=== PATIENT | male | born 1985 | race African-American/Black ===

== ENCOUNTER → 2017-03-13 | Outpatient (CLI) | payer BC ==
[~2017-03-13] VITALS: Ht 160 cm; Wt 100.7 kg
[~2017-03-13] MED LIST: ALEVE220 MG PO; CEFDINIR300 MG PO; DOXYCYCLINE 10100 MG PO; FLEXERIL PO; HYDROCODONE-APA1 TA1 PO; LUNESTA3 MG PO; MOBIC7.5 MG PO; ONDANSETRON ODT4 MG SUBLING; PREDNISONE 20 M20 MG PO; REQUIP 1 MG TABL1 M1 PO
--- NOTE | ~2017-03-13 | CATHLAB ---
[facility] [address] [place] [address] INVASIVE PROCEDURE REPORT Name: ADDIE POLK Room #: REG SOFIA Rubio#: [id number] Admission: 03/13/17 Attend Phys: William Santiago Discharge: Date of : 85 Date of Service: 03/13/17 1323 Report #: [id number] THIS REPORT FOR: //name// APPROVED REPORT Patient Details Patient Status: Out-Patient Room #: The patient is a 31 year-old male Event Personnel William Pruett Customer Engagement Representative, Shelton Guy RN, Jazlyn Funez [place], Nancy Monitor, Praful To Monitor Procedures Performed Left Heart Cath w/or w/o Coronaries [id number] [facility] supervision of conscious sedation Indication Positive stress test, Chest pain Procedure Narrative The Right Groin^ was infiltrated with 1% Lidocaine subcutaneous anesthesia. A PINNACLE 4FR Sheath #[id number] sheath was inserted into the RFA^. Coronary angiography was performed using coronary diagnostic catheters. The right coronary system was accessed and visualized with a JR4 catheter. The left coronary system was accessed and visualized with a JL4 catheter. The left ventricle was accessed and visualized with a PIGTAIL catheter. Left ventricular/Aortic Valve gradient assessed via catheter pullback. Hemostasis was obtained with manual pressure following sheath removal without any complications. The patient tolerated the procedure well and there were no complications associated with the procedure. There was no hematoma. Intraoperative Conscious Sedation Sedation start time: 1017 Case end Time: 1026 Versed 2 mg Fluoro Time: 1.42 minutes Dose: 365 mGy Contrast Type and Amount: Omnipaque 45 ml Coronary Angiography [address] [address] INVASIVE PROCEDURE REPORT Name: ADDIE POLK Room #: REG [facility] [id number] Admission: 03/13/17 Attend Phys: William Santiago Discharge: Date of : 85 Date of Service: 03/13/17 1323 Report #: [id number] The patient's coronary anatomy is right dominant. Diagnostic Cath Left Main Normal origin and caliber long in length bifurcates into the left anterior descending left circumflex free of high-grade disease LAD Moderate caliber type III vessel courses anteriorly in the interventricular sulcus giving rise to septal and diagonal branches all of which are free of high-grade disease Diagonal 1 Small-caliber free of high-grade disease Circumflex Small-caliber vessel low normal origin has a early first marginal branch which is bifurcating and free of high-grade disease circumflex then continues on giving rise to a second lateral wall marginal branch free of high-grade disease and terminates as small-caliber vessel prior to reaching the crux of the heart OM1 Small to moderate caliber free of high-grade disease OM2 Small to moderate caliber free of high-grade disease Right Coronary Large-caliber vessel of normal origin and courses posteriorly in the AV groove giving rise to a small RV marginal branch. It then gives rise to a small posterior descending artery posterior wall branches posterior left ventricular branch. 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 Hemodynamics The aortic pressure is 123/83 mmHg with a mean of 100 mmHg. The left ventricular pressure is 136/8 mmHg with a mean of mmHg. The left ventricular end diastolic pressure is 19 mmHg. Conclusion 1. Normal coronary arteries 2. Evidence of right coronary artery AVM 3. Normal hemodynamics [facility] [address] [place] [address] INVASIVE PROCEDURE REPORT Name: ADDIE POLK [facility] Room #: REG [facility] [id number] Admission: 03/13/17 Attend Phys: William Santiago Discharge: Date of : 85 Date of Service: 03/13/171322 Report #: [id number] Recommendations Cardiac Risk Reduction Program <ELECTRONICALLY SIGNED> By: William Pruett MD 03/13/17 132 22 22 William Pruett MD /INF
[2017-03-13 07:20] VITALS: BP 143/85
== END | disposition home or self-care (01) ==
LOC: CATH 06:46
DX: Q24.5 Malformation of coronary vessels (principal); I10 Essential (primary) hypertension; G47.33 Obstructive sleep apnea (adult) (pediatric); Z87.891 Personal history of nicotine dependence; Z79.899 Other long term (current) drug therapy

== ENCOUNTER 2017-12-15 18:59 | Emergency (ER) | payer BC ==
[~2017-12-15] VITALS: Ht 160 cm; Wt 103.0 kg
[~2017-12-15 18:59] MED LIST changes: -ALEVE220 MG PO; -DOXYCYCLINE 10100 MG PO; -LUNESTA3 MG PO; -MOBIC7.5 MG PO; -PREDNISONE 20 M20 MG PO
[2017-12-15] MEDS ORDERED: ALEVE220 MG PO (19:27)
[2017-12-15] MEDS ORDERED: FLEXERIL PO (19:27)
[2017-12-15] MEDS ORDERED: PREDNISONE 20 M20 MG PO (19:44)
[2017-12-15] MEDS ORDERED: LUNESTA3 MG PO (19:47)
== END 2017-12-15 19:51 | disposition home or self-care (01) ==
LOC: ER 18:59
DX: M54.5 Low back pain (principal); I10 Essential (primary) hypertension; G47.30 Sleep apnea, unspecified; Z88.1 Allergy status to other antibiotic agents

== ENCOUNTER 2017-12-28 17:27 | Emergency (ER) | payer BC ==
[~2017-12-28] VITALS: Ht 160 cm; Wt 105.7 kg
[~2017-12-28 17:27] MED LIST changes: +ALEVE220 MG PO; +LUNESTA3 MG PO; +PREDNISONE 20 M20 MG PO
[2017-12-28 18:00] LABS: URINE BILIRUBIN NEGATIVE (Negative); URINE BLOOD TRACE (Negative); URINE CLARITY CLEAR; URINE COLOR YELLOW; URINE GLUCOSE-RANDOM* NEGATIVE (Negative); URINE KETONES NEGATIVE (Negative); URINE LEUKOCYTES-REFLEX NEGATIVE (Negative); URINE NITRITE-REFLEX NEGATIVE (Negative); URINE PROTEIN (DIPSTICK) NEGATIVE (Negative); URINE SPECIFIC GRAVITY >= 1.030 (1.005-1.035); URINE UROBILINOGEN 0.2 E.U./dl (0.2-1.0)
[2017-12-28 19:06] LABS: ABSOLUTE NEUTROPHILS 6.8 thou/uL (1.4-8.2); BASOPHILS 0.7 % (0.0-2.0); EOSINOPHILS 4.3 % (0.0-3.0); HEMATOCRIT 44.3 % (42.0-52.0); HEMOGLOBIN 15.1 gm/dL (14.0-18.0); LYMPHOCYTES 26.1 % (24.0-44.0); MCH 30.1 pg (26.0-34.0); MCHC 34.1 g/dL (28.0-37.0); MCV 88.4 fL (80.0-100.0); MONOCYTES 5.6 % (1.0-8.0); PLATELET COUNT 191 thou/uL (150-400); POLYS 63.3 % (36.0-66.0); RBC 5.01 mil/uL (4.50-6.00); RDW 12.6 % (10.5-14.5); WBC 10.7 thou/uL (4.0-11.0)
[2017-12-28 19:13] LABS: CALCIUM 9.9 mg/dL (8.5-10.1); POTASSIUM 3.8 mmol/L (3.5-5.1)
[2017-12-28 19:19] LABS: ALBUMIN 3.8 g/dL (3.4-5.0); TOTAL BILIRUBIN 0.6 mg/dL (<0.1-1.0); TOTAL PROTEIN 7.7 g/dL (6.4-8.2)
[2017-12-28] MEDS ORDERED: DOXYCYCLINE 10100 MG PO (19:23)
[2017-12-28] MEDS ORDERED: MOBIC7.5 MG PO (19:23)
== END 2017-12-28 19:52 | disposition home or self-care (01) ==
LOC: ER 17:27
PROVIDERS: Nurse Practitioner Family
DX: N50.3 Cyst of epididymis (principal); I10 Essential (primary) hypertension; Z87.891 Personal history of nicotine dependence; Z88.1 Allergy status to other antibiotic agents

== ENCOUNTER 2018-04-09 14:46 | Emergency (ER) | payer BC ==
[~2018-04-09] VITALS: Ht 157.5 cm; Wt 104.8 kg
[~2018-04-09 14:46] MED LIST changes: +DOXYCYCLINE 10100 MG PO; +MOBIC7.5 MG PO
[2018-04-09] MEDS ORDERED: PROTONIX40 M1 PO (14:52)
[2018-04-09 15:12] LABS: URINE CLARITY CLEAR; URINE COLOR YELLOW; URINE SPECIFIC GRAVITY 1.025 (1.005-1.035)
[2018-04-09 15:13] LABS: URINE BILIRUBIN NEGATIVE (Negative); URINE BLOOD NEGATIVE (Negative); URINE GLUCOSE-RANDOM* NEGATIVE (Negative); URINE KETONES NEGATIVE (Negative); URINE LEUKOCYTES-REFLEX NEGATIVE (Negative); URINE NITRITE-REFLEX NEGATIVE (Negative); URINE PROTEIN (DIPSTICK) NEGATIVE (Negative); URINE UROBILINOGEN 0.2 E.U./dl (0.2-1.0)
[2018-04-09 15:24] LABS: ABSOLUTE NEUTROPHILS 6.1 thou/uL (1.4-8.2); BASOPHILS 0.2 % (0.0-2.0); HEMATOCRIT 42.9 % (42.0-52.0); LYMPHOCYTES 12.2 % (24.0-44.0); MCH 29.8 pg (26.0-34.0); MCV 85.1 fL (80.0-100.0); MONOCYTES 6.1 % (1.0-8.0); PLATELET COUNT 213 thou/uL (150-400); POLYS 80.5 % (36.0-66.0); RBC 5.04 mil/uL (4.50-6.00); RDW 12.1 % (10.5-14.5); WBC 7.6 thou/uL (4.0-11.0)
[2018-04-09 15:32] LABS: CALCIUM 8.6 mg/dL (8.5-10.1); CREATININE 1.2 mg/dL (0.7-1.3); POTASSIUM 3.3 mmol/L (3.5-5.1)
[2018-04-09 15:39] LABS: ALBUMIN 3.9 g/dL (3.4-5.0); TOTAL BILIRUBIN 0.7 mg/dL (<0.1-1.0); TOTAL PROTEIN 8.1 g/dL (6.4-8.2)
[2018-04-09] MEDS ORDERED: BENTYL 20 MG TA20 M1 PO (17:33)
[2018-04-09] MEDS ORDERED: PHENERGAN 25 MG25 M1 PO (17:33)
[2018-04-09] MEDS ORDERED: PEPCID20 MG PO (17:33)
[2018-04-09] MEDS ORDERED: NORFLEX100 MG PO (17:38)
[2018-04-09 17:48] VITALS: BP 142/86
--- NOTE | 2018-04-10 13:38 | EKG ---
[address] [place] [address] ELECTROCARDIOGRAM REPORT Name: JOHN POLKTON JULIA Room #: DEP Joanne#: [id number] Admission: 04/09/18 Attend Phys: Discharge: 04/09/18 Date of : 85 Report #: [id number] THIS REPORT FOR: //name// [facility] ED Test Date: 2018-04-09 Test Time: 15:35:06 Pat Name: ADDIE POLK Department: Room: Gender: Medical Assistant Supervisor: : 1985 Requested By: Tangela Vieira Order Number: [id number] MD: Dustin Painting Measurements Intervals [place] Rate: 83 P: 73 [place]: 163 QRS: 4 QRSD: 88 T: 4 QT: 404 QTc: 475 Interpretive Statements Sinus rhythm LVH by voltage No previous ECG available for comparison Electronically Signed On 04-10-2018 13:38:03 [employer] by Dustin Painting [email or web address] <ELECTRONICALLY SIGNED> By: Dustin Painting MD 04/10/18 1338 1535 1535 Dustin Painting MD /YELENA
== END 2018-04-09 17:49 | disposition home or self-care (01) ==
LOC: ER 14:46
PROVIDERS: Physician Assistant
DX: R10.13 Epigastric pain (principal); M54.5 Low back pain; I10 Essential (primary) hypertension; Z87.19 Personal history of other diseases of the digestive system; Z88.1 Allergy status to other antibiotic agents; G47.30 Sleep apnea, unspecified; Z87.891 Personal history of nicotine dependence; Z98.52 Vasectomy status

== ENCOUNTER 2018-06-16 16:45 | Emergency (ER) | payer BC ==
[~2018-06-16] VITALS: Ht 157.5 cm; Wt 102.5 kg
[~2018-06-16 16:45] MED LIST changes: +BENTYL 20 MG TA20 M1 PO; +NORFLEX100 MG PO; +PEPCID20 MG PO; +PHENERGAN 25 MG25 M1 PO; +PROTONIX40 M1 PO
[2018-06-16 17:06] LABS: ABSOLUTE NEUTROPHILS 5.1 thou/uL (1.4-8.2); BASOPHILS 0.6 % (0.0-2.0); EOSINOPHILS 6.9 % (0.0-3.0); HEMATOCRIT 42.8 % (42.0-52.0); HEMOGLOBIN 14.6 gm/dL (14.0-18.0); LYMPHOCYTES 28.1 % (24.0-44.0); MCH 29.5 pg (26.0-34.0); MCHC 34.1 g/dL (28.0-37.0); MCV 86.4 fL (80.0-100.0); MONOCYTES 5.3 % (1.0-8.0); PLATELET COUNT 266 thou/uL (150-400); POLYS 59.1 % (36.0-66.0); RBC 4.95 mil/uL (4.50-6.00); RDW 12.3 % (10.5-14.5); WBC 8.7 thou/uL (4.0-11.0)
[2018-06-16 17:06] LABS: URINE BILIRUBIN NEGATIVE (Negative); URINE BLOOD NEGATIVE (Negative); URINE CLARITY CLEAR; URINE COLOR YELLOW; URINE GLUCOSE-RANDOM* NEGATIVE (Negative); URINE KETONES NEGATIVE (Negative); URINE LEUKOCYTES-REFLEX NEGATIVE (Negative); URINE NITRITE-REFLEX NEGATIVE (Negative); URINE PROTEIN (DIPSTICK) NEGATIVE (Negative); URINE UROBILINOGEN 0.2 E.U./dl (0.2-1.0)
[2018-06-16 17:15] LABS: CALCIUM 9.3 mg/dL (8.5-10.1); CREATININE 1.1 mg/dL (0.7-1.3); POTASSIUM 3.4 mmol/L (3.5-5.1)
[2018-06-16 17:21] LABS: ALBUMIN 4.2 g/dL (3.4-5.0); TOTAL BILIRUBIN 0.4 mg/dL (<0.1-1.0); TOTAL PROTEIN 7.9 g/dL (6.4-8.2)
[2018-06-16 18:10] VITALS: BP 152/76
== END 2018-06-16 18:15 | disposition home or self-care (01) ==
LOC: ER 16:45
PROVIDERS: Emergency Medicine
DX: E87.6 Hypokalemia (principal); R10.31 Right lower quadrant pain; I10 Essential (primary) hypertension; G47.30 Sleep apnea, unspecified; Z88.1 Allergy status to other antibiotic agents